=== PATIENT | female | born 1975 | race Caucasian/White ===

== ENCOUNTER → 2025-04-20 | Outpatient (CLI) | payer OTHER, SELFPAY ==
--- NOTE | 2025-04-20 10:09 | RAD_ITS ---
PROCEDURE: CHEST PA AND LATERAL 04/20/2025 REASON FOR EXAM: COUGH WITH PAIN TECHNIQUE: Procedure Code: RADCXR Modality: DX Procedure: CHEST PA AND LATERAL COMPARISON: None. FINDINGS: The lungs are adequately aerated bilaterally without pleural effusion, pneumothorax, or focal airspace disease. Cardiomediastinal structures are within normal limits. Osseous structures are age-appropriate. RAD/Chest PA and Lateral IMPRESSION: No evidence of acute cardiopulmonary abnormality. Reading Location: [place] [id number]
== END | disposition home or self-care (01) ==
LOC: MTRAD 10:09
PROVIDERS: PCP Nurse Practitioner Family; Referring Provider Physician Assistant Surgical; Visit Provider Physician Assistant Surgical
DX: J20.9 Acute bronchitis, unspecified (principal)
CPT/HCPCS: 71046

== ENCOUNTER 2025-04-23 19:15 | Emergency (ER) | payer OTHER, SELFPAY ==
[2025-04-23 19:15] VITALS: BP 186/94; PULSE 110; PULSE 111; RESP 18; TEMP 36.2; O2SAT 98
--- NOTE | 2025-04-23 19:59 | EKG12_ITS ---
Test Reason : CP
--- NOTE | 2025-04-23 19:59 | CT_ITS ---
PROCEDURE: CT/Brain/Head without Contrast
[2025-04-23] MEDS: 0.9% Normal Saline (1000mL) 1,000 ML 999 ML IV (20:08)
--- NOTE | 2025-04-23 20:08 | ED.VIS.CHEST ---
HPI History of Present Illness Chief Complaint: Chest Pain Narrative Narrative: Chief complaint and HPI: 49-year-old female with no significant past medical history other than anxiety presents for evaluation of chest pain. Patient states for the past several days she has been having intermittent chest pain which she describes as sharp. Currently on azithromycin. Patient states it became more tight today with shortness of breath. She states during all that she had a short period of confusion however this quickly resolved. She denies any fever, chills, nausea, vomiting. Review of systems: See HPI Medications: As listed on the chart Allergies: As listed on the chart PFSH: Per chart Vital signs: As listed on the chart. Reviewed. Physical exam: Gen: A&O x3, NAD Head: Normocephalic, atraumatic Eyes: No sclera icterus, conjunctiva clear, PERRL, EOMI ENT: Moist mucous membranes, No facial asymmetry Neck: Trachea midline, No JVD CV: Tachycardic, regular rhythm, no murmurs, no peripheral edema Resp: Lungs CTA BL, no w/r/c GI: Abd soft, non-distended, non-tender, no r/r/g Musc: Full ROM, no deformity, strength +5/5 in all extremities, no pronator drift, no ataxia Skin: Warm, dry but anxious Neuro: Alert, oriented, grossly intact, sensation intact, no focal deficits Psych: Cooperative [facility] Medical History no medical history Home Medications ?Medication ?Instructions ?Recorded ?Last Taken ?Type azithromycin 250 mg tablet See Rx Instructions PO .COMPLEX #6 04/20/25 Unknown Rx tabs cyclobenzaprine 10 mg tablet 10 mg PO TID PRN muscle spasm 7 04/20/25 Unknown Rx days #21 tabs Allergy/AdvReac Type Severity Reaction Status Date / Time No Known Allergies Allergy Verified 04/23/25 19:16 Family History no significant family his Surgical History no surgical history Social History Smoking Status: Never smoker EXAM Physical Exam Const Vital Signs: 04/23/25 19:15 04/23/25 19:15 04/23/25 21:15 Temperature 97.1 F L Temperature Source Temporal Pulse Rate 110 H 111 H 92 Respiratory Rate 18 22 H Blood Pressure 186/94 H 123/82 H Blood Pressure Mean 124 95 Pulse Ox 98 100 Oxygen Delivery Method Room Air Room Air MDM MDM MDM Narrative Medical decision making narrative: 49-year-old female with no significant past medical history other than anxiety presents for evaluation of chest pain. Patient states for the past several days she has been having intermittent chest pain which she describes as sharp. Currently on azithromycin. Patient states it became more tight today with shortness of breath. She states during all that she had a short period of confusion however this quickly resolved. On presentation, patient is anxious. Originally when she presented her blood pressure was in the 180s however on my exam it is in the 140s. States she has no history of hypertension states however given that she has not been feeling the past 2 weeks she has noticed her blood pressure has been more elevated in the 140s. See physical exam findings. Differential diagnosis includes but is not limited to URI, pneumonia, bronchitis, pleurisy, myofascial spasm, suspect less likely ACS or PE. Aspirin and NS bolus ordered. Cardiac workup ordered. Given patient had this short episode of confusion will perform CT head to rule out any any cranial abnormality. This is not consistent with a CVA. Nursing did inform me that patient did admit to eating a edible prior to arrival. CBC without leukocytosis or anemia. D-dimer unremarkable. BMP unremarkable. Magnesium unremarkable. TSH unremarkable. CT head negative for any acute intracranial abnormality. Troponin unremarkable x 2. On reevaluation, patient's blood pressure is 123/82. Her symptoms have resolved. At this point in time, no clear etiology for her symptoms. Her chest pain was atypical. Her heart score is a 2 due to age and family history which places her in the low risk category for ACS. Given that patient's blood pressure was elevated on arrival as well as at home, I do recommend her checking at intermittently. She is to follow-up with her primary care physician to assess if she has HTN. Return precautions explained. She confirmed understand the plan. Patient discharged home. EKG: Interpreted by me/EM physician: EKG shows normal sinus rhythm without any acute ischemic changes. Heart rate 96 Diagnostic: Interpreted by me/EM physician: Chest x-ray pneumonia, effusion, cardiomegaly, pneumothorax. Radiology in agreement. Impression: 1. Chest pain 2. Resolved HTN Lab Data Labs: Laboratory Results - last 24 hr 04/23/25 04/23/25 19:39 21:28 WBC 8.3 RBC 4.15 L Hgb 12.7 Hct 37.6 MCV 90.6 MCH 30.6 MCHC 33.8 RDW Std Deviation 39.6 RDW Coeff of Jude 12.0 Plt Count 298 MPV 9.2 Immature Gran % (Auto) 0.800 Neut % (Auto) 49.4 Lymph % (Auto) 38.0 Garrard % (Auto) 5.8 Eos % (Auto) 5.2 H Baso % (Auto) 0.8 Absolute Neuts (auto) 4.1 Absolute Lymphs (auto) 3.16 Nucleated RBC % 0 D-Dimer Quant (PE/DVT) 0.41 Sodium 139 Potassium 3.6 Chloride 103 Carbon Dioxide 24.4 Anion Gap 12 BUN 14 Creatinine 0.66 L Est GFR (MDRD) Non-Af 109 BUN/Creatinine Ratio 21.4 H Glucose 114 H Calcium 9.1 Magnesium 2.0 Troponin T High Sens < 6 Troponin T Hi Sens 2 Hr < 6 TSH 1.750 Radiography Diagnostic Testing: Clinical Impression(s) from Imaging Studies Brain CT 04/23/25 19:59 IMPRESSION: No acute intracranial abnormality. Reading Location: [facility] Chest X-Ray 04/23/25 20:40 IMPRESSION: No acute cardiopulmonary disease. Reading Location: [facility] Discharge Plan Triage Chief Complaint: Chest Pain ED Provider: Ramiro Rodriguez Dx/Rx/DC Orders Prescriptions: No Action cyclobenzaprine 10 mg tablet 10 mg PO TID PRN (Reason: muscle spasm) 7 Days Qty: 21 0RF azithromycin 250 mg tablet See Rx Instructions PO .COMPLEX Qty: 6 0RF Rx Instructions: take 500 mg today (day 1), then 250 mg for 4 days (days 2-5) PO Primary Care Provider: Olga Dial Referrals: Olga Dial, [employer] [Primary Care Provider, Family Practice] Print Language: Indonesian
[2025-04-23 20:15] LABS: Hematocrit 37.6 % (37-47); Hemoglobin 12.7 g/dL (12.0-15.0); Immature Granulocytes Count 0.070 X10^3/uL (0.0-0.0); Mean Corp Hgb Conc 33.8 g/dL (32-36); Mean Corpuscular Volume 90.6 fL (81-99); Mean Platelet Vol. 9.2 fl (6.2-12.0); NRBC Flagged by Analyzer 0 % (0-5); Platelet Count 298 K/mm3 (150-450); RBC Distribution Width CV 12.0 % (11.6-14.6); RBC Distribution Width SD 39.6 fl (35.1-43.9); Red Blood Count 4.15 M/mm3 (4.2-5.4); White Blood Count 8.3 K/mm3 (4.4-11.0)
[2025-04-23 20:22] LABS: D-Dimer Quantitative (DVT/PE) 0.41 FEU/ug/m (0.27-0.49)
[2025-04-23 20:37] LABS: Anion Gap 12 (5-15); BUN 14 mg/dL (4-19); BUN/Creat Ratio 21.4 RATIO (10-20); Calcium,Total 9.1 mg/dL (7.6-11.0); Carbon Dioxide 24.4 mmol/L (21.0-32.0); Chloride 103 mmol/L (98-108); Glucose 114 mg/dL (70-99); Magnesium 2.0 mg/dL (1.5-2.2); Potassium 3.6 mmol/L (3.3-5.1); Troponin T High Sensitivity < 6 ng/L (<=14)
--- NOTE | 2025-04-23 20:40 | RAD_ITS ---
PROCEDURE: RAD/Chest PA and Lateral
[2025-04-23 21:15] VITALS: BP 123/82; PULSE 92; RESP 22; O2SAT 100
[2025-04-23 21:48] LABS: Troponin T High Sens 2 HR < 6 ng/L (<=14)
[2025-04-23 22:34] VITALS: BP 114/78; PULSE 94; RESP 17; TEMP 36.9; O2SAT 96
== END 2025-04-23 22:45 | disposition home or self-care (01) ==
PROVIDERS: Emergency Provider Surgery; PCP Nurse Practitioner Family; Visit Provider Surgery
DX: R07.9 Chest pain, unspecified (principal); F41.9 Anxiety disorder, unspecified; R06.02 Shortness of breath
CPT/HCPCS: 70450; 71046; 80048; 83735; 84443; 84484; 85025; 85379; 93005; 96360; 99284; A4216

== ENCOUNTER → 2025-04-23 | Outpatient (CLI) | payer OTHER, SELFPAY ==
[2025-04-26 14:57] LABS: Cholesterol 211 mg/dL (<=200); Low Density Lipoprotein Calc. 116 mg/dL; Triglycerides 333 mg/dL; Very Low Density Lipoprotein 67 mg/dL (5-40); cholesterol:hdl ratio screen 5.63
[2025-04-26 14:58] LABS: AST(SGOT) 21 U/L (<=31); Alanine Aminotransfer ALT/SGPT 16 U/L (<=34); Albumin, Serum 4.3 g/dL (3.5-5.0); Alkaline Phosphatase 72 U/L (35-104); Bilirubin, Direct < 0.08 mg/dL (0.00-0.30); Globulin 3.0 g/dL (2.2-4.2)
== END | disposition home or self-care (01) ==
LOC: LABSPEC 04-26 14:00
PROVIDERS: PCP Nurse Practitioner Family; Referring Provider Nurse Practitioner Family; Visit Provider Nurse Practitioner Family
DX: Z00.01 Encounter for general adult medical examination with abnormal findings (principal)
CPT/HCPCS: 80061; 80076